=== PATIENT | male | born 1975 | race Caucasian/White ===

== ENCOUNTER 2016-05-18 23:46 | Emergency (ER) | payer SELFPAY ==
[2016-05-19] MEDS ORDERED: Aspirin Low Dose CHEW TAB* 81 MG PO ONE (00:23)
[2016-05-19] MEDS ORDERED: Acetaminophen TAB* 325 MG ONE (01:58)
[2016-05-19] MEDS ORDERED: Acetaminophen TAB* 325 MG PO ONE (02:02)
[2016-05-19 02:03] LABS: Hematocrit 38 % (42-52); Hemoglobin 12.5 g/dl (14.0-18.0); Mean Corpuscular HGB Conc 33 g/dl (31-36); Mean Corpuscular Hemoglobin 27 pg (27-31); Mean Corpuscular Volume 82 fL (80-94); Mean Platelet Volume 8 um3 (7.4-10.4); Red Blood Count 4.62 10^6/ul (4.0-5.4); Red Cell Distribution Width 14 % (10.5-15); White Blood Count 9.8 10^3/ul (3.5-10.8)
[2016-05-19 02:19] LABS: Albumin 3.6 g/dL (3.2-5.2); BUN/Creatinine Ratio 10.3 (8-20); Calcium 8.6 mg/dL (8.6-10.3); EGFR African American 97.5 (>60); EGFR Non-African American 75.8 (>60); Globulin 4.5 g/dL (2-4); Potassium 4.2 mmol/L (3.5-5.0); Total Bilirubin 0.6 mg/dL (0.2-1.0); Total Protein 8.1 g/dL (6.4-8.9)
[2016-05-19 02:21] LABS: Troponin I 0.01 ng/mL (<0.04)
[2016-05-19] MEDS ORDERED: Iohexol 350* (CONTRAST) 500 ML MDV IV ONE (03:44)
[2016-05-19] MEDS ORDERED: Albuterol/Ipratropium NEB.SOL* Albuterol 2.5 MG/Ipratropium 0.5 MG 3 ML INH ONE (04:55)
[2016-05-19] MEDS ORDERED: Azithromycin TAB* 250 MG PO ONE (05:09)
[2016-05-19 06:41] VITALS: BP 129/51
[2016-05-19] MEDS ORDERED: Ibuprofen TAB* 600 MG PO ONE (07:01)
--- NOTE | 2016-05-19 07:29 | RAD ---
INDICATION: Chest pain. COMPARISON: There are no prior studies available for comparison. TECHNIQUE: A portable view of the chest was obtained. FINDINGS: Cardiac and mediastinal contours appear to be within normal limits. There is a small left basilar infiltrate. No pleural effusion is seen. IMPRESSION: SMALL LEFT BASILAR INFILTRATE.
--- NOTE | 2016-05-19 09:13 | RAD ---
INDICATION: Elevated d-dimer, cough and shortness of breath. COMPARISON: Comparison is made with a prior chest x-ray study from May 18, 2016. TECHNIQUE: A CT angiogram of the chest was performed with intravenous following intravenous injection of 88 ml of Omnipaque 350 nonionic contrast. Contiguous axial sections were obtained from the lung apices through the lung bases. Images were reconstructed in the coronal and sagittal planes. FINDINGS: The exam is slightly limited due to suboptimal opacification of the pulmonary arteries. No intraluminal filling defect or pulmonary embolism is seen. The heart is within normal limits in size. No pericardial effusion is present. The thoracic aorta is normal in caliber and demonstrates homogeneous contrast opacification. No significant enlarged mediastinal or hilar lymph nodes are seen. There is a small a moderate size infiltrate present in the left lower lobe which is patchy with more focal areas of consolidation and air bronchograms most consistent with pneumonia. No pleural effusion is seen. Images of the upper abdomen demonstrate diffuse fatty infiltration of the liver. No significant focal osseous abnormality is seen. IMPRESSION: 1. SLIGHTLY LIMITED EXAM, NO EVIDENCE FOR PULMONARY EMBOLISM. 2. LEFT LOWER LOBE INFILTRATE MOST CONSISTENT WITH PNEUMONIA. 3. HEPATIC STEATOSIS.
--- NOTE | 2016-05-23 22:49 | ED ---
Clint Bangura Erika, scribed for Compa Powell MD on 05/19/16 at 0453 . Respiratory - HPI Summary HPI Summary: Patient is a 40-year-old male presenting to the ED with his mother with a CC of cough starting 05/16/2016. Cough became productive today with yellow phlegm. Associated symptoms include SOB, chest tightness, and myalgias. Patient denies Hx COPD, HTN, hyperlipidemia. Patient works as a product coordinator. - History of Current Complaint Chief Complaint: EDChestPainROMI Stated Complaint: COUGH/ SOB Time Seen by Provider: 05/19/16 00:23 Hx Obtained From: Patient, Family/Ct Manager - Mother Onset/Duration: Gradual Onset, Lasting Days, Still Present Timing: Constant Initial Severity: Mild Current Severity: Moderate Pain Intensity: 4 Character: Cough (Productive) Sputum Amount: Scant Sputum Color: Yellow Alleviating Factor(s): Nothing Associated Signs and Symptoms: SOB, URI - Allergy/Home Medications Allergies/Adverse Reactions: Allergies Allergy/AdvReac Type Severity Reaction Status Date / Time No Known Allergies Allergy Verified 05/18/16 23:50 PMH/Surg Hx/FS Hx/Imm Hx Endocrine/Hematology History: Denies: Hx Diabetes Cardiovascular History: Reports: Hx Hypertension History: Denies: Hx Renal Disease Infectious Disease History: No Infectious Disease History: Denies: Traveled Outside the [place] in Last 30 Days - Family History Known Family History: Positive: Hypertension - Social History Alcohol Use: Rare Hx Substance Use: No Substance Use Type: Reports: None Hx Tobacco Use: Yes Smoking Status (MU): Former Smoker Review of Systems Positive: Fever. Negative: Chills Negative: Erythema Negative: Sore Throat Cardiovascular: Other - chest tightness Negative: Chest Pain Positive: Shortness Of Breath, Cough Negative: Abdominal Pain, Vomiting, Nausea Negative: dysuria, hematuria Positive: Myalgia. Negative: Edema Negative: Rash Neurological: Other - No dizziness All Other Systems Reviewed And Are Negative: Yes Physical Exam - Summary Physical Exam Summary: Constitutional: Well-developed, Well-nourished, Alert. (-) Distressed Skin: Warm, Dry HENT: Normocephalic; Atraumatic Eyes: Conjunctiva normal Neck: Musculoskeletal ROM normal neck. (-) JVD, (-) Stridor, (-) Tracheal deviation Cardio: Rhythm regular, rate normal, Heart sounds normal; Intact distal pulses; The pedal pulses are 2+ and symmetric. Radial pulses are 2+ and symmetric. (-) Murmur Pulmonary/Chest wall: Effort normal. (-) Respiratory distress, (-) Wheezes, (-) Rales. rhonchi in the left lower lung field Abd: Soft, (-) Tenderness, (-) Distension, (-) Guarding, (-) Rebound Musculoskeletal: (-) Edema Lymph: (-) Cervical adenopathy Neuro: Alert, Oriented x3 Psych: Mood and affect Normal Triage Information Reviewed: Yes Vital Signs On Initial Exam: Initial Vitals Temp Pulse Resp BP Pulse Ox 98.7 F 100 20 137/91 94 05/18/16 23:50 05/18/16 23:50 05/18/16 23:50 05/18/16 23:50 05/18/16 23:50 Vital Signs Reviewed: Yes - Hammond Coma Scale Coma Scale Total: 15 Diagnostics - Vital Signs Vital Signs Temp Pulse Resp BP Pulse Ox 05/19/16 02:00 102.2 F 99 23 97 05/19/16 01:30 144/60 05/19/16 01:00 94 23 95 05/19/16 00:30 91 20 141/64 94 05/19/16 00:15 14 05/19/16 00:14 132/52 05/18/16 23:50 98.7 F 100 20 137/91 94 - Laboratory Lab Results: Lab Results 05/19/16 05/19/16 05/19/16 Range/Units 01:50 01:50 01:50 WBC 9.8 (3.5-10.8) 10^3/ul RBC 4.62 (4.0-5.4) 10^6/ul Hgb 12.5 L (14.0-18.0) g/dl Hct 38 L (42-52) % MCV 82 (80-94) fL MCH 27 (27-31) pg MCHC 33 (31-36) g/dl RDW 14 (10.5-15) % Plt Count 226 (150-450) 10^3/ul MPV 8 (7.4-10.4) um3 Neut % (Auto) 75.5 (38-83) % Lymph % (Auto) 16.1 L (25-47) % [place] % (Auto) 7.5 (1-9) % Eos % (Auto) 0.4 (0-6) % Baso % (Auto) 0.5 (0-2) % Absolute Neuts (auto) 7.4 (1.5-7.7) 10^3/ul Absolute Lymphs (auto) 1.6 (1.0-4.8) 10^3/ul Absolute Monos (auto) 0.7 (0-0.8) 10^3/ul Absolute Eos (auto) 0 (0-0.6) 10^3/ul Absolute Basos (auto) 0 (0-0.2) 10^3/ul Absolute Nucleated RBC 0 10^3/ul Nucleated RBC % 0 D-Dimer, Quantitative (Less Than 230) ng/mL Sodium 130 L (133-145) mmol/L Potassium 4.2 (3.5-5.0) mmol/L Chloride 98 L (101-111) mmol/L Carbon Dioxide 24 (22-32) mmol/L Anion Gap 8 (2-11) mmol/L BUN 11 (6-24) mg/dL Creatinine 1.07 (0.67-1.17) mg/dL Est GFR ( Amer) 97.5 (>60) Est GFR (Non-Af Amer) 75.8 (>60) BUN/Creatinine Ratio 10.3 (8-20) Glucose 110 H (70-100) mg/dL Lactic Acid 0.9 (0.5-2.0) mmol/L Calcium 8.6 (8.6-10.3) mg/dL Total Bilirubin 0.60 (0.2-1.0) mg/dL AST 36 (13-39) U/L ALT 26 (7-52) U/L Alkaline Phosphatase 76 (34-104) U/L Troponin I 0.01 (<0.04) ng/mL Total Protein 8.1 (6.4-8.9) g/dL Albumin 3.6 (3.2-5.2) g/dL Globulin 4.5 H (2-4) g/dL Albumin/Globulin Ratio 0.8 L (1-3) Influenza A (Rapid) (Negative) Influenza B (Rapid) (Negative) 05/19/16 05/19/16 Range/Units 01:50 02:07 WBC (3.5-10.8) 10^3/ul RBC (4.0-5.4) 10^6/ul Hgb (14.0-18.0) g/dl Hct (42-52) % MCV (80-94) fL MCH (27-31) pg MCHC (31-36) g/dl RDW (10.5-15) % Plt Count (150-450) 10^3/ul MPV (7.4-10.4) um3 Neut % (Auto) (38-83) % Lymph % (Auto) (25-47) % [place] % (Auto) (1-9) % Eos % (Auto) (0-6) % Baso % (Auto) (0-2) % Absolute Neuts (auto) (1.5-7.7) 10^3/ul Absolute Lymphs (auto) (1.0-4.8) 10^3/ul Absolute Monos (auto) (0-0.8) 10^3/ul Absolute Eos (auto) (0-0.6) 10^3/ul Absolute Basos (auto) (0-0.2) 10^3/ul Absolute Nucleated RBC 10^3/ul Nucleated RBC % D-Dimer, Quantitative 412 H (Less Than 230) ng/mL Sodium (133-145) mmol/L Potassium (3.5-5.0) mmol/L Chloride (101-111) mmol/L Carbon Dioxide (22-32) mmol/L Anion Gap (2-11) mmol/L BUN (6-24) mg/dL Creatinine (0.67-1.17) mg/dL Est GFR ( Amer) (>60) Est GFR (Non-Af Amer) (>60) BUN/Creatinine Ratio (8-20) Glucose (70-100) mg/dL Lactic Acid (0.5-2.0) mmol/L Calcium (8.6-10.3) mg/dL Total Bilirubin (0.2-1.0) mg/dL AST (13-39) U/L ALT (7-52) U/L Alkaline Phosphatase (34-104) U/L Troponin I (<0.04) ng/mL Total Protein (6.4-8.9) g/dL Albumin (3.2-5.2) g/dL Globulin (2-4) g/dL Albumin/Globulin Ratio (1-3) Influenza A (Rapid) Negative (Negative) Influenza B (Rapid) Negative (Negative) Result Diagrams: 05/19/16 01:50 05/19/16 01:50 Lab Statement: Any lab studies that have been ordered have been reviewed, and results considered in the medical decision making process. - Radiology CXR Xray Interpretation: No Acute Changes Radiology Interpretation Completed By: ED Physician - CT CTA Chest CT Interpretation Completed By: Radiologist - Imaging ammonia operator - left lower lobe pneumonia - EKG 00:00 Cardiac Rate: NL - at 97 bpm EKG Rhythm: Sinus Rhythm EKG Interpretation: No STEMI Re-Evaluation - Re-Evaluation First Eval Re-Evaluation Time: 06:35 Comment: Patient would like to be discharged Disposition - Diagnoses Provider Diagnoses: Community acquired pneumonia Discharge - Discharge Plan Condition: Stable Disposition: HOME Patient Education Materials: Pneumonia (ED) Referrals: [facility] [place] PHYSICIAN REFERRAL [Outside] Additional Instructions: RETURN TO THE EMERGENCY DEPARTMENT FOR CHANGING OR WORSENING SYMPTOMS. Please follow up with a PCP in 3-5 days. If you cannot, then please follow up with [facility]. The documentation as recorded by the Clint arroyo Erika accurately reflects the service I personally performed and the decisions made by me, Compa Powell MD.
== END 2016-05-19 07:10 | disposition home or self-care (01) ==
LOC: ED 23:46
DX: J18.9 Pneumonia, unspecified organism (principal); R05 Cough; R06.02 Shortness of breath
CPT/HCPCS: 36415; 71010; 71275; 80053; 83605; 84484; 85025; 85379; 87502; 93005; 99283; A9270-GY; Q9967

== ENCOUNTER 2016-05-21 18:28 | Emergency (ER) | payer SELFPAY ==
[2016-05-21 19:56] VITALS: BP 156/96
--- NOTE | 2016-05-21 20:13 | UC ---
Throat Pain/Nasal Ravi HPI - HPI Summary HPI Summary: Here for recheck of pneumonia dx in the ED saturday started taking zithromax and albuterol which he is using at least 2x day feels better already denies shortness of breath, fever since saturday taking advil and tylenol with relief - History of Current Complaint Chief Complaint: UCRespiratory Stated Complaint: FOLLOW-UP COUGH Time Seen by Provider: 05/21/16 20:06 Hx Obtained From: Patient - Allergies/Home Medications Allergies/Adverse Reactions: Allergies Allergy/AdvReac Type Severity Reaction Status Date / Time No Known Allergies Allergy Verified 05/21/16 19:57 PMH/Surg Hx/FS Hx/Imm Hx Previously Healthy: No - pneumonia Endocrine History Of: Denies: Diabetes Cardiovascular History Of: Reports: Hypertension GI/ History Of: Denies: Renal Disease - Family History Known Family History: Positive: Diabetes - father Negative: Cardiac Disease, Hypertension - Social History Occupation: Employed Full-time Lives: With Family Alcohol Use: Rare Substance Use Type: None Smoking Status (MU): Former Smoker Review of Systems Constitutional: Negative Skin: Negative Eyes: Negative ENT: Nasal Discharge Respiratory: Cough Cardiovascular: Negative Gastrointestinal: Negative Genitourinary: Negative Motor: Negative Neurovascular: Negative Musculoskeletal: Negative Neurological: Negative Psychological: Negative All Other Systems Reviewed And Are Negative: Yes Physical Exam Triage Information Reviewed: Yes Appearance: Well-Appearing, No Pain Distress, Obese Vital Signs: Initial Vital Signs Temp 97.9 F 05/21/16 19:50 Pulse 96 05/21/16 19:50 Resp 20 05/21/16 19:50 BP 156/96 05/21/16 19:50 Pulse Ox 94 05/21/16 19:50 Vital Signs Reviewed: Yes Eyes: Positive: Conjunctiva Clear ENT: Positive: Pharynx normal, Nasal congestion, Nasal drainage Respiratory: Positive: Normal breath sounds, No respiratory distress, No accessory muscle use Cardiovascular: Positive: RRR, No Murmur, Pulses Normal Abdomen Description: Positive: Nontender, Soft, Distended Bowel Sounds: Positive: Present Musculoskeletal: Positive: No Edema Neurological: Positive: Alert Psychological Exam: Normal Skin Exam: Normal Throat Pain/Nasal Course/Dx - Differential Dx/Diagnosis Differential Diagnosis/HQI/PQRI: Other - pneumonia- Provider Diagnoses: pneumonia- resolving. elevated blood pressure without dx of HTN Discharge - Discharge Plan Condition: Stable Disposition: HOME Patient Education Materials: Pneumonia (ED) Forms: *Work Release Referrals: No Primary Care Phys,NOPCP [Primary Care Provider] - Additional Instructions: Your blood pressure is elevated. Please contact your primary care provider within 1 day -4 weeks for further evaluation. Continue to take antibiotic as directed Use your albuterol inhaler every 4-6 hours when needed for wheezing, shortness of breath or uncontrolled coughing. Increase fluids and rest Take acetaminophen or ibuprofen for fever or pain Please review your discharge instructions. If your symptoms do not improve please call your primary care provider or return to urgent care.
== END 2016-05-21 20:28 | disposition home or self-care (01) ==
LOC: UCEAST 18:28
DX: J18.9 Pneumonia, unspecified organism (principal); R03.0 Elevated blood-pressure reading, without diagnosis of hypertension; E66.9 Obesity, unspecified; Z87.891 Personal history of nicotine dependence
CPT/HCPCS: 99211; G0463

== ENCOUNTER 2016-09-03 16:07 | Emergency (ER) | payer BC ==
[2016-09-03 16:15] VITALS: BP 143/88
--- NOTE | 2016-09-09 10:07 | UC ---
General HPI - HPI Summary HPI Summary: Patient here requesting Blood pressure cheek---Follow up from MD office Visit - History of Current Complaint Chief Complaint: UCGeneralIllness Stated Complaint: BP CHECK Time Seen by Provider: 09/03/16 16:37 Hx Obtained From: Patient Onset/Duration: Gradual Onset Current Severity: None Pain Intensity: 0 - Allergy/Home Medications Allergies/Adverse Reactions: Allergies Allergy/AdvReac Type Severity Reaction Status Date / Time No Known Allergies Allergy Verified 05/21/16 19:57 PMH/Surg Hx/FS Hx/Imm Hx Previously Healthy: Yes - Surgical History Surgical History: Yes Surgery Procedure, Year, and Place: epiglotecomy - Family History Known Family History: Positive: Diabetes - father Negative: Cardiac Disease, Hypertension - Social History Occupation: Employed Full-time Lives: With Family Alcohol Use: Rare Substance Use Type: None Smoking Status (MU): Former Smoker Review of Systems Constitutional: Negative Skin: Negative Eyes: Negative ENT: Negative Respiratory: Negative Cardiovascular: Negative Gastrointestinal: Negative Genitourinary: Negative Motor: Negative Neurovascular: Negative Musculoskeletal: Negative Neurological: Negative Psychological: Negative All Other Systems Reviewed And Are Negative: Yes Physical Exam Triage Information Reviewed: Yes Appearance: Well-Appearing, No Pain Distress, Obese Vital Signs: Initial Vital Signs Temp 98.9 F 09/03/16 16:11 Pulse 93 09/03/16 16:11 Resp 16 09/03/16 16:11 BP 143/88 09/03/16 16:11 Pulse Ox 99 09/03/16 16:11 Vital Signs Reviewed: Yes Eye Exam: Normal Eyes: Positive: Conjunctiva Clear ENT Exam: Normal ENT: Positive: Normal ENT inspection, Hearing grossly normal, Pharynx normal. Negative: Nasal congestion, Nasal drainage, Trismus, Muffled/hoarse voice Dental Exam: Normal Neck exam: Normal Neck: Positive: Supple, Nontender, No Lymphadenopathy Respiratory Exam: Normal Respiratory: Positive: Chest non-tender, Lungs clear, Normal breath sounds, No respiratory distress Cardiovascular Exam: Normal Cardiovascular: Positive: RRR, No Murmur, Pulses Normal, Brisk Capillary Refill Musculoskeletal Exam: Normal Musculoskeletal: Positive: Strength Intact, ROM Intact, No Edema Neurological Exam: Normal Neurological: Positive: Alert, Muscle Tone Normal Psychological Exam: Normal Psychological: Positive: Normal Response To Family, Age Appropriate Behavior Skin Exam: Normal Course/Dx - Course Course Of Treatment: Bp right and Left manuelling 130-140/80S recorded for patient DASH Diet information provided - Differential Dx - Multi-Symptom Differential Diagnoses: Other - Pre hypertesion, obesity Provider Diagnoses: Pre-hypertension, Obesity Discharge - Discharge Plan Condition: Stable Disposition: HOME Patient Education Materials: DASH Eating Plan (ED) Referrals: [facility] [place] PHYSICIAN REFERRAL [Outside] - 2 Weeks
== END 2016-09-03 16:50 | disposition home or self-care (01) ==
LOC: UCEAST 16:07
DX: I10 Essential (primary) hypertension (principal); E66.9 Obesity, unspecified; Z87.891 Personal history of nicotine dependence
CPT/HCPCS: 99211; G0463

== ENCOUNTER 2018-08-27 10:06 | Emergency (ER) | payer BC, OTHER ==
[2018-08-27 10:32] VITALS: BP 143/90
[2018-08-27] MEDS ORDERED: Ketorolac *IM* INJ* 60 MG/2 ML VIAL IM ONE (10:51)
--- NOTE | 2018-08-27 11:01 | ED ---
Neck Pain - HPI Summary HPI Summary: Patient is an obese 42-year-old male presenting to the ED with left-sided neck pain radiating into the posterior shoulder and into the tricep. He is also endorsing some intermittent tingling throughout the thumb and first finger. Symptoms have been present 3 weeks intermittently ever since pulling up on a car price at work. Denies any numbness or tingling currently. Denies any color or temperature changes. He states this has never happened to him before. He denies any posterior cervical spine tenderness. Denies any headache. He states he has never injured the neck, shoulder or arm in the past. He remains able to flex and extend, abduct and adduct at the shoulder joint, however with discomfort, especially abducting the shoulder past 90. However, he is able to do so. - History of Current Complaint Chief Complaint: Jasvir Stated Complaint: LEFT SHOULDE PAIN AND ARM PAIN PER PT Time Seen by Provider: 08/27/18 10:23 Hx Obtained From: Patient Timing: Constant Onset/Duration: Sudden Onset Severity Initially: Moderate Severity Currently: Moderate Pain Intensity: 6 Pain Scale Used: 0-10 Numeric Location: Discrete At: - left sided neck and shoulder Aggravating Factors: Nothing Alleviating Factors: Nothing Associated Signs & Symptoms: Positive: Negative - Risk Factors Meningitis Risk Factors: Negative - Allergies/Home Medications Allergies/Adverse Reactions: Allergies Allergy/AdvReac Type Severity Reaction Status Date / Time No Known Allergies Allergy Verified 05/21/16 19:57 PMH/Surg Hx/FS Hx/Imm Hx Previously Healthy: Yes Endocrine/Hematology History: Denies: Hx Diabetes Cardiovascular History: Denies: Hx Hypertension History: Denies: Hx Renal Disease - Surgical History Surgery Procedure, Year, and Place: epiglotecomy - Immunization History Hx Pertussis Vaccination: No Immunizations Up to Date: Yes Infectious Disease History: No Infectious Disease History: Denies: Hx Clostridium Difficile, Hx Hepatitis, Hx Human Immunodeficiency Virus (HIV), Hx of Known/Suspected MRSA, Hx Shingles, Hx Tuberculosis, Hx Known/ Suspected VRE, Hx Known/Suspected VRSA, History Other Infectious Disease, Traveled Outside the [place] in Last 30 Days - Family History Known Family History: Positive: Diabetes - father Negative: Cardiac Disease, Hypertension - Social History Occupation: Employed Full-time Lives: With Family Alcohol Use: Rare Hx Substance Use: No Substance Use Type: Reports: None Hx Tobacco Use: No Smoking Status (MU): Former Smoker Review of Systems Constitutional: Negative Negative: Fever, Chills, Fatigue, Skin Diaphoresis Negative: Palpitations, Chest Pain Negative: Shortness Of Breath, Cough Negative: Abdominal Pain, Vomiting, Diarrhea, Nausea Positive: Arthralgia - left sided neck pain radiating to the L hand Skin: Negative Neurological: Negative All Other Systems Reviewed And Are Negative: Yes Physical Exam Triage Information Reviewed: Yes Vital Signs On Initial Exam: Initial Vitals Temp Pulse Resp BP Pulse Ox 98.0 F 86 16 143/90 96 08/27/18 10:09 08/27/18 10:09 08/27/18 10:09 08/27/18 10:08/27/18 10:09 Vital Signs Reviewed: Yes Appearance: Positive: Well-Appearing, Well-Nourished Skin: Positive: Warm, Skin Color Reflects Adequate Perfusion Head/Face: Positive: Normal Head/Face Inspection Eyes: Positive: EOMI, MICHELLE, Conjunctiva Clear Neck: Positive: Supple, No Lymphadenopathy Respiratory/Lung Sounds: Positive: Clear to Auscultation, Breath Sounds Present Cardiovascular: Positive: RRR, Pulses are Symmetrical in both Upper and Lower Extremities Musculoskeletal: Positive: Pain @ - left shoulder Neurological: Positive: Alert, Oriented to Person Place, Time, Speech Normal Psychiatric: Positive: Affect/Mood Appropriate AVPU Assessment: Alert Diagnostics - Vital Signs Vital Signs Temp Pulse Resp BP Pulse Ox 08/27/18 10:09 98.0 F 86 16 143/90 96 - Laboratory Lab Statement: Any lab studies that have been ordered have been reviewed, and results considered in the medical decision making process. Neck Course/Dx - Course Course Of Treatment: On physical examination, patient remains able to flex and extend, abduct and adduct the shoulder joint. No numbness or tingling noted into the fingertips at this time. No color temperature changes. Pulses +2 intact bilaterally. No posterior cervical spine tenderness. No carotid bruits. Lungs CTA, RRR. Patient remained to abduct to approximately 90. He denies any trauma or injury, however states symptoms began 3 weeks ago when lifting a car price. I have advised he f/u with ortho if sxs persist. For now, will treat conservatively with toradol, prednisone and flexeril. He is given a note for work. Ortho referral is given. Cervical radiculopathy. - Diagnoses Provider Diagnoses: Cervical radicular pain Discharge - Sign-Out/Discharge Documenting (check all that apply): Patient Departure Patient Received Moderate/Deep Sedation with Procedure: No - Discharge Plan Condition: Stable Disposition: HOME Prescriptions: Cyclobenzaprine TAB* [Flexeril TAB*] 10 mg PO BID PRN #10 tab MDD 2 PRN Reason: Spasms Ketorolac TAB * [Toradol TAB *] 10 mg PO Q6H #16 tab predniSONE TAB* [Deltasone TAB*] 50 mg PO DAILY #5 tab MDD 1 Patient Education Materials: Cervical Radiculopathy (ED) Forms: *Work Release Referrals: Jean Carlos Macdonald MD [Medical Doctor] - No Primary Care Phys,NOPCP [Primary Care Provider] - Additional Instructions: If symptoms persist, please follow up with Dr. Macdonald or other orthopedic physician No heavy lifting, pushing or pulling at this time Moist heat to the area as much as possible Gentle stretches Icy hot/tiger balm when not using moist heat Toradol four times daily x 4 days Flexeril twice daily x 5 days - do not drive or operate machinery while taking this medication Prednisone once daily in the morning 5 days - Billing Disposition and Condition Condition: STABLE Disposition: Home
== END 2018-08-27 11:01 | disposition home or self-care (01) ==
LOC: ED 10:06
DX: M54.12 Radiculopathy, cervical region (principal); M54.2 Cervicalgia; Z87.891 Personal history of nicotine dependence
CPT/HCPCS: 96372; 99281; J1885

== ENCOUNTER 2019-04-06 12:47 | Emergency (ER) | payer SELFPAY ==
[2019-04-06 13:10] VITALS: BP 156/95
--- NOTE | 2019-04-06 13:32 | UC ---
Knee Pain HPI - HPI Summary HPI Summary: 43 yo male presents with 2 complaints; 1) He tells me that in October of 2018 he recalls falling off of the bed of his truck and landing on his right knee. Since that time has had pain in his right knee with full extension and with ambulating. Worse if on his feet for long periods of time. He has been taking tylenol/ibuprofen with little relief. He states that he usually plays football locally, but has not been able to due to pain. Denies numbness or tingling. 2) Over the last 2 days has had burning with urination and yesterday noticed blood in his urine. He has never had issues like this before. He denies pain at rest, flank or back pain. He denies fever, chills, abdominal pain, n/v/d, hx of kidney stones, penile drainage or rashes. No testicular pain. States no concern for STDs today as he has had the same partner for the last 9 years. - History of Current Complaint Chief Complaint: UCGU Stated Complaint: KNEE PAIN,BURNING WHILE URINATING Time Seen by Provider: 04/06/19 13:31 Hx Obtained From: Patient Onset/Duration: Gradual Onset Severity Initially: Moderate Severity Currently: Moderate Pain Intensity: 5 Pain Scale Used: 0-10 Numeric - Allergies/Home Medications Allergies/Adverse Reactions: Allergies Allergy/AdvReac Type Severity Reaction Status Date / Time No Known Allergies Allergy Verified 04/06/19 13:11 Home Medications: Home Medications Glucosam/Chond/Collagen/Hyalur [Glucosamine Chondroitin Cap] 1 each PO DAILY [History Confirmed 04/06/19] Ibuprofen TAB* [Motrin TAB* 600 MG] 600 mg PO Q8H PRN 04/06/19 [History Confirmed 04/06/19] PMH/Surg Hx/FS Hx/Imm Hx - Additional Past Medical History Additional PMH: None - Surgical History Surgical History: Yes Surgery Procedure, Year, and Place: epiglotecomy - Family History Known Family History: Positive: Diabetes - father Negative: Cardiac Disease, Hypertension - Social History Occupation: Employed Full-time Lives: With Family Alcohol Use: Occasionally Substance Use Type: None Smoking Status (MU): Former Smoker Review of Systems All Other Systems Reviewed And Are Negative: No Constitutional: Positive: Negative Skin: Positive: Negative Eyes: Positive: Negative ENT: Positive: Negative Respiratory: Positive: Negative Cardiovascular: Positive: Negative Gastrointestinal: Positive: Negative Genitourinary: Positive: Dysuria, Hematuria Motor: Positive: Negative Neurovascular: Positive: Negative Musculoskeletal: Positive: Other: - Right knee pain Neurological/Mental Status: Positive: Negative Psychological: Positive: Negative Physical Exam - Summary Physical Exam Summary: Exam limited due to body habitus. GENERAL: NAD. SKIN: No rashes, sores, lesions, or open wounds. NECK: Supple. Nontender. No lymphadenopathy. CHEST: CTAB. No r/r/w. No accessory muscle use. Breathing comfortably and in no distress. CV: RRR. Pulses intact. Cap refill <2seconds. Pulses intact popliteal, PT, and DP. Cap refill <2seconds ABDOMEN: Soft. NTTP. No CVA tenderness. Bowel sounds present MSK: RIGHT KNEE: FROM. Strength 5/5. No patella apprehension. Difficult to assess specialized testing due to body habitus. NEURO: Alert. Sensations intact and symmetric B/L LEs PSYCH: Age appropriate behavior. Triage Information Reviewed: Yes Vital Signs: Initial Vital Signs Temp 98.3 F 04/06/19 13:05 Pulse 74 04/06/19 13:05 Resp 16 04/06/19 13:05 BP 156/95 04/06/19 13:05 Pulse Ox 99 04/06/19 13:05 Laboratory Tests 04/06/19 13:37 POC Urine Color Yellow POC Urine Clarity Cloudy POC Urine pH 7.0 POC Ur Specif [place] 1.015 POC Urine Protein 2+ A POC Ur Glucose (UA) Negative POC Urine Ketones Negative POC Urine Blood 3+ A POC Urine Nitrite Negative POC Urine Bilirubin Negative POC Urine Urobilinogen 0.2 POC U Leukocyte Esteras 2+ A Vital Signs Reviewed: Yes Diagnostics - Radiology Knee XR Radiology Interpretation Completed By: Radiologist Summary of Radiographic Findings: IMPRESSION: OSTEOARTHRITIS. NO ACUTE OSSEOUS INJURY. IF SYMPTOMS PERSIST, RECOMMEND REPEAT IMAGING. Knee Pain Course/Dx - Course Course Of Treatment: XR as above. - Suspect pain due to body habitus and chronic arthritis. Will refer him to Ortho for further treatment and eval. UA as above. Suspect UTI. He declined exam today as he states everything appears normal. Low suspicion for kidney stone as he has no hx of this and has no pain at rest and no CVA tenderness or flank pain. - Differential Dx/Diagnosis Provider Diagnosis: UTI (urinary tract infection), Right knee pain Discharge ED - Sign-Out/Discharge Documenting (check all that apply): Patient Departure All imaging exams completed and their final reports reviewed: Yes - Discharge Plan Condition: Stable Disposition: HOME Prescriptions: Cephalexin CAP* [Keflex CAP*] 500 mg PO TID #15 cap Patient Education Materials: Urinary Tract Infection in Men (ED), Knee Pain (ED ) Referrals: No Primary Care Phys,NOPCP [Primary Care Provider] - Valeria Pacheco MD [Medical Doctor] - As Soon As Possible Additional Instructions: If you develop a fever, shortness of breath, chest pain, new or worsening symptoms - please call your PCP or go to the ED immediately. Your blood pressure was high at todays visit. Please see your primary provider within 4 weeks for recheck and re-evaluation. Take your antibiotic as prescribed for your urinary infection. I recommend that you call Orthopedics at the number below to schedule an appointment for further treatment of your knee pain - Billing Disposition and Condition Condition: STABLE Disposition: Home
[2019-04-07 13:14] LABS: Chlamydia trachomatis NAA Negative (Negative); Neisseria gonorrhoeae (GC) NAA Negative (Negative)
--- NOTE | 2019-04-08 08:13 | UC ---
- Progress Note Progress Note: + E Coli On Keflex await sensitivity - no change ljj Course/Dx - Diagnoses Provider Diagnoses: UTI (urinary tract infection), Right knee pain Discharge ED - Sign-Out/Discharge Documenting (check all that apply): Post-Discharge Follow Up All imaging exams completed and their final reports reviewed: Yes - Discharge Plan Condition: Stable Disposition: HOME Prescriptions: Cephalexin CAP* [Keflex CAP*] 500 mg PO TID #15 cap Patient Education Materials: Urinary Tract Infection in Men (ED), Knee Pain (ED ) Referrals: Valeria Pacheco MD [Medical Doctor] - As Soon As Possible No Primary Care Phys,NOPCP [Primary Care Provider] - Additional Instructions: If you develop a fever, shortness of breath, chest pain, new or worsening symptoms - please call your PCP or go to the ED immediately. Your blood pressure was high at todays visit. Please see your primary provider within 4 weeks for recheck and re-evaluation. Take your antibiotic as prescribed for your urinary infection. I recommend that you call Orthopedics at the number below to schedule an appointment for further treatment of your knee pain - Billing Disposition and Condition Condition: STABLE Disposition: Home
== END 2019-04-06 14:10 | disposition home or self-care (01) ==
LOC: UCEAST 12:47
DX: M25.561 Pain in right knee (principal); N39.0 Urinary tract infection, site not specified; M17.11 Unilateral primary osteoarthritis, right knee; R31.9 Hematuria, unspecified; Z87.891 Personal history of nicotine dependence
CPT/HCPCS: 81003; 87077; 87086; 87186; 87491; 87591; 99212; G0463

== ENCOUNTER 2023-02-06 08:47 | Inpatient (IN) ==
[~2023-02-06 08:47] MED LIST: Buffered Lidocaine 1% SYRIN 1 ml INTRADERM ONE; Lactated Ringers 1000 ml BAG 1,000 ML IV SCH
[2023-02-06] MEDS ORDERED: ceFAZolin *3* GM in NS PREMIX 3 GM/100 ML BAG IV ONE (10:15)
[2023-02-06] MEDS ORDERED: Heparin 5000 UNITS/ML 1 mL VIAL ONE (10:16)
[2023-02-06] MEDS ORDERED: Scopolamine 1 mg/72hr PATCH ONE ×2 (10:16→16:06)
[2023-02-06] MEDS ORDERED: Naloxone 0.4 mg VIAL 0.4 mg/ml 1 ml VIAL IV PRN (10:33)
[2023-02-06] MEDS ORDERED: Acetaminophen IV 1 GM/100ML 1,000 MG/100 ML BAG IV PRN ×2 (10:33→15:13)
[2023-02-06] MEDS ORDERED: Ondansetron 4 mg VIAL 2 MG/ML 2 ml VIAL IV PRN ×2 (10:33→15:13)
[2023-02-06 10:53] LABS: Rapid COVID-19 Molecular Undetected (Undetected)
[2023-02-06] MEDS ORDERED: Lidocaine 1% w EPI 1:200,000 SDV 30 ML VIAL ONE (11:04)
[2023-02-06] MEDS ORDERED: Bupivacaine 0.25% SDV 30 ML ONE (11:04)
[2023-02-06] MEDS ORDERED: Methylene Blue 1% (ANTIDOTE) 10 MG/ML 1 ML SDV VIAL IVPB ONE (11:04)
[2023-02-06] MEDS ORDERED: Ondansetron 4 mg VIAL 2 MG/ML 2 ml VIAL ONE ×2 (11:19→14:52)
[2023-02-06] MEDS ORDERED: Propofol 10 MG/ML 20 ML BTL ONE (11:19)
[2023-02-06] MEDS ORDERED: Lidocaine 2% PF 5 ML VIAL ONE (11:19)
[2023-02-06] MEDS ORDERED: Rocuronium 50 mg VIAL 10 mg/ml 5 ml VIAL (50 mg) ONE ×3 (11:19→14:17)
[2023-02-06] MEDS ORDERED: fentaNYL 100 mcg/2 ml 50 MCG/ML VIAL ONE ×2 (11:19→14:56)
[2023-02-06] MEDS ORDERED: Dexamethasone IV 4 MG/ML VIAL 1 ml VIAL ONE (11:19)
[2023-02-06] MEDS ORDERED: Glycopyrrolate IV 0.2 MG/ML 1 ML VIAL ONE (11:59)
[2023-02-06] MEDS ORDERED: KETAMINE HCL 10 MG/ML 20 ml VIAL (200 MG) ONE (12:05)
[2023-02-06] MEDS ORDERED: Acetaminophen IV 1 GM/100ML 1,000 MG/100 ML BAG IV ONE (12:05)
[2023-02-06] MEDS ORDERED: Sevoflurane BOTTLE ONE (12:14)
[2023-02-06] MEDS ORDERED: Phenylephrine 40 mcg/mL 10mL (400mcg) SYRINGE ONE (12:32)
[2023-02-06] MEDS ORDERED: Phenylephrine IV 10 MG/ML 1 ml VIAL ONE (12:41)
[2023-02-06] MEDS: fentaNYL 100 mcg/2 ml 50 MCG/ML VIAL IV PRN ×4 (14:57→15:45)
[2023-02-06] MEDS ORDERED: HYDROmorphone 1 MG/1 ML SYRINGE IV SLOW PU PRN (15:13)
[2023-02-06] MEDS ORDERED: HYDROcodone/ACET. 7.5/325 LIQ 15 ML UDC PO PRN (15:13)
[2023-02-06] MEDS ORDERED: HYDROmorphone 0.5 MG/0.5 ML SYRINGE IV SLOW PU PRN (15:13)
[2023-02-06] MEDS ORDERED: HYDROmorphone 1 MG/1 ML SYRINGE ONE (15:48)
[2023-02-06] MEDS: HYDROmorphone 1 MG/1 ML SYRINGE IV PRN ×5 (15:49→16:35)
[2023-02-06] MEDS ORDERED: Dextrose 50% Syringe 50 ml 25 GM/50 ML SYRINGE ONE (15:56)
[2023-02-06] MEDS ORDERED: Dextrose 50% Syringe 50 ml 25 GM/50 ML SYRINGE IV PUSH PRN (15:59)
[2023-02-06] MEDS ORDERED: Scopolamine 1 mg/72hr PATCH TRANSDERM SCH (16:00)
[2023-02-06] MEDS: Lactated Ringers 1000 ml BAG 1,000 ML IV SCH ×3 (16:11→23:57)
[2023-02-06] MEDS: Famotidine IV 10 MG/ML 2 ml VIAL (20 mg) IV SLOW PU SCH (20:48)
[2023-02-06] MEDS: Heparin 5000 UNITS/ML 1 mL VIAL SUBCUT SCH (21:55)
[2023-02-07] MEDS: Heparin 5000 UNITS/ML 1 mL VIAL SUBCUT SCH ×2 (05:22→14:23)
[2023-02-07] MEDS: Lactated Ringers 1000 ml BAG 1,000 ML IV SCH (08:09)
[2023-02-07] MEDS: Famotidine IV 10 MG/ML 2 ml VIAL (20 mg) IV SLOW PU SCH (08:10)
[2023-02-07 14:01] VITALS: BP 127/79
[2023-02-07] MEDS ORDERED: D5W 1/2 NS KCl 20 meq 1000 ml 1,000 ML IV SCH (16:00)
== END 2023-02-07 17:50 | disposition home or self-care (01) | DRG 403 ==
LOC: OR 08:47 → SSU 17:15
PROVIDERS: ADMIT Surgery; ATTEND Surgery